=== PATIENT | female | born 1995 | race Caucasian/White ===

== ENCOUNTER 2016-09-30 11:18 | Inpatient (IN) | payer MEDICAID ==
[~2016-09-30] VITALS: Ht 149.9 cm; Wt 67.1 kg
[2016-09-30] MEDS ORDERED: CARBOPROST TROMETHAMINE 250 MCG/ML AMPUL IM PRN (12:15)
[2016-09-30] MEDS ORDERED: LIDOCAINE HCL 1% 20ML VIAL (Pyxis) INJ INFIL SCH (12:15)
[2016-09-30] MEDS ORDERED: NALOXONE HCL 0.4 MG/ML 1ML VIAL IM PRN (12:15)
[2016-09-30] MEDS ORDERED: BUTORPHANOL TARTRATE 2 MG/ML VIAL IV PRN (12:15)
[2016-09-30] MEDS ORDERED: METHYLERGONOVINE MALEATE 0.2 MG/ML IM PRN (12:15)
[2016-09-30] MEDS ORDERED: MISOPROSTOL 100MCG TABLET VG SCH (12:15)
[2016-09-30] MEDS ORDERED: DEXT 5%/LR + PITOCIN 20UNITS/L 1,000 ML IV SCH ×2 (12:20→20:30)
[2016-09-30] MEDS ORDERED: AMPICILLIN 2,000 MG in SODIUM CHLORIDE 0.9% 100 ML IV SCH (12:30)
[2016-09-30] MEDS: LACTATED RINGERS 1,000 ML IV SCH ×2 (12:53→14:25)
[2016-09-30 13:02] LABS: BASOPHILS % 0.5 % (0.0-2.0); EOSINOPHILS % 0.1 % (0.0-5.0); HEMATOCRIT. 31.5 % (36.0-48.0); HEMOGLOBIN. 10.2 g/dL (12.0-16.0); LYMPHOCYTES % 22.1 % (20.0-50.0); MEAN CORPUSCULAR HEMOGLOBIN 24.6 pg (28.0-32.0); MEAN CORPUSCULAR VOLUME 75.5 fL (81.0-99.0); MEAN PLATELET VOLUME 8.5 fl (7.4-10.4); MONOCYTES % 10.1 % (2.0-8.0); NEUTROPHILS % 67.2 % (40.0-76.0); PLATELET 198 x1000/uL (130-400); RED BLOOD CELL COUNT 4.16 mill/uL (4.2-5.4)
[2016-09-30 13:05] LABS: CLARITY URINE CLOUDY (CLEAR); COLOR URINE YELLOW (YELLOW); KETONES URINE NEGATIVE (NEGATIVE); LEUKOCYTE ESTERASE URINE 3+ (NEGATIVE); NITRITE URINE NEGATIVE (NEGATIVE); OCCULT BLOOD URINE TRACE (NEGATIVE); PROTEIN URINE NEGATIVE (NEGATIVE); SPECIFIC GRAVITY URINE 1.012 (1.005-1.030); UROBILINOGEN URINE 0.2 E.U./dL (0.2-1.0)
[2016-09-30 13:13] LABS: INR 0.9; PARTIAL THROMBOPLASTIN TIME 26.5 sec (24.0-34.0); PROTHROMBIN TIME 9.7 sec
[2016-09-30 13:52] LABS: *AMPHETAMINES SCREEN URINE NEGATIVE (NEGATIVE); *BARBITURATES SCREEN URINE NEGATIVE (NEGATIVE); *BENZODIAZEPINES SCREEN URINE NEGATIVE (NEGATIVE); CANNABINOID URINE SCREEN NEGATIVE (NEGATIVE); METHADONE URINE SCREEN NEGATIVE (NEGATIVE); OPIATES URINE SCREEN NEGATIVE (NEGATIVE); PHENCYCLIDINE URINE SCREEN NEGATIVE (NEGATIVE)
[2016-09-30 13:55] LABS: *COCAINE SCREEN URINE NEGATIVE (NEGATIVE)
[2016-09-30 14:12] LABS: HEPATITIS B SURFACE ANTIGEN NEGATIVE
[2016-09-30] MEDS ORDERED: RHO(D) IMMUNE GLOBULIN 300 MCG/SYR IM PRN (20:15)
[2016-09-30] MEDS ORDERED: ACETAMINOPHEN WITH CODEINE 300/30MG TABLET PO PRN (20:15)
[2016-09-30] MEDS ORDERED: IBUPROFEN 400MG TABLET PO PRN (20:15)
[2016-09-30] MEDS: IBUPROFEN 800MG TABLET PO PRN (21:17)
[2016-10-01] MEDS ORDERED: AMPICILLIN 1,000 MG in SODIUM CHLORIDE 0.9% 50 ML IV SCH (00:30)
[2016-10-01 05:32] LABS: BASOPHILS % 0.5 % (0.0-2.0); EOSINOPHILS % 0.2 % (0.0-5.0); HEMATOCRIT. 30.6 % (36.0-48.0); HEMOGLOBIN. 9.9 g/dL (12.0-16.0); LYMPHOCYTES % 20.8 % (20.0-50.0); MEAN CORPUSCULAR HEMOGLOBIN 24.5 pg (28.0-32.0); MEAN PLATELET VOLUME 8.4 fl (7.4-10.4); MONOCYTES % 12.1 % (2.0-8.0); NEUTROPHILS % 66.4 % (40.0-76.0); PLATELET 178 x1000/uL (130-400); RED BLOOD CELL COUNT 4.03 mill/uL (4.2-5.4); RED CELL DISTRIBUTION WIDTH 16.1 % (11.6-14.6)
[2016-10-01] MEDS: IBUPROFEN 800MG TABLET PO PRN (12:46)
[2016-10-02 08:07] VITALS: BP 90/64
== END 2016-10-02 14:00 | disposition home or self-care (01) | DRG 560 ==
LOC: OBSVTOIN 11:18 → L&D 11:18 → 7EST PP/OB 22:50
PROVIDERS: ADMIT Obstetrics & Gynecology; ATTEND Obstetrics & Gynecology
PROC: 0KQM0ZZ Repair Perineum Muscle, Open Approach (ICD-10-PCS; 2016-09-30)
PROC: 10E0XZZ Delivery of Products of Conception, External Approach (ICD-10-PCS; principal; 2016-09-30 19:50)
DX: O69.81X0 Labor and delivery complicated by cord around neck, without compression, not applicable or unspecified (principal); O99.03 Anemia complicating the puerperium; O70.1 Second degree perineal laceration during delivery; Z37.0 Single live birth; Z3A.38 38 weeks gestation of pregnancy
CPT/HCPCS: 36415; 80305; 81001; 85025; 85610; 85730; 86592; 86703; 86762; 86850; 86900; 87340; J0290; J2210; J2590; J3490; J7050; J7120

== ENCOUNTER 2018-08-29 12:06 | Inpatient (IN) | payer MEDICAID ==
[~2018-08-29] VITALS: Ht 134.6 cm; Wt 71.7 kg
[2018-08-29] MEDS ORDERED: LACTATED RINGERS 1,000 ML IV SCH (13:00)
[2018-08-29] MEDS ORDERED: METHYLERGONOVINE MALEATE 0.2 MG/ML IM PRN (13:15)
[2018-08-29] MEDS ORDERED: LIDOCAINE HCL 1% 20ML VIAL (Pyxis) INJ INFIL SCH (13:15)
[2018-08-29] MEDS ORDERED: CARBOPROST TROMETHAMINE 250 MCG/ML AMPUL IM PRN (13:15)
[2018-08-29] MEDS ORDERED: PENICILLIN G POTASSIUM 5 MMU in DEXT 5% WATER 100 ML IV ONE (13:30)
[2018-08-29 14:30] LABS: CHLORIDE 110 mEq/L (98-107)
[2018-08-29 14:34] LABS: BASOPHILS % 0.5 % (0.0-2.0); EOSINOPHILS % 0.1 % (0.0-5.0); HEMATOCRIT. 34.1 % (36.0-48.0); HEMOGLOBIN. 10.9 g/dL (12.0-16.0); LYMPHOCYTES % 30.6 % (20.0-50.0); MEAN CORPUSCULAR HEMOGLOBIN 24.6 pg (28.0-32.0); MEAN CORPUSCULAR VOLUME 77.2 fL (81.0-99.0); MEAN PLATELET VOLUME 8.8 fl (7.4-10.4); MONOCYTES % 9.4 % (2.0-8.0); NEUTROPHILS % 59.4 % (40.0-76.0); PLATELET 226 x1000/uL (130-400); RED BLOOD CELL COUNT 4.41 mill/uL (4.2-5.4); RED CELL DISTRIBUTION WIDTH 17.1 % (11.6-14.6)
[2018-08-29 15:16] LABS: HEPATITIS B SURFACE ANTIGEN NEGATIVE
[2018-08-29 15:43] LABS: INR 0.9; PROTHROMBIN TIME 9.6 sec (9.6-11.0)
[2018-08-29 16:05] LABS: CLARITY URINE CLEAR (CLEAR); COLOR URINE YELLOW (YELLOW); KETONES URINE NEGATIVE (NEGATIVE); LEUKOCYTE ESTERASE URINE NEGATIVE (NEGATIVE); NITRITE URINE NEGATIVE (NEGATIVE); OCCULT BLOOD URINE NEGATIVE (NEGATIVE); PH URINE 6.5 (4.5-8.0); PROTEIN URINE NEGATIVE (NEGATIVE); SPECIFIC GRAVITY URINE 1.006 (1.005-1.030); UROBILINOGEN URINE 0.2 E.U./dL (0.2-1.0)
[2018-08-29 16:25] LABS: *AMPHETAMINES SCREEN URINE NEGATIVE (NEGATIVE); *BARBITURATES SCREEN URINE NEGATIVE (NEGATIVE); *BENZODIAZEPINES SCREEN URINE NEGATIVE (NEGATIVE)
[2018-08-29 16:26] LABS: *COCAINE SCREEN URINE NEGATIVE (NEGATIVE); CANNABINOID URINE SCREEN NEGATIVE (NEGATIVE); METHADONE URINE SCREEN NEGATIVE (NEGATIVE); OPIATES URINE SCREEN NEGATIVE (NEGATIVE); PHENCYCLIDINE URINE SCREEN NEGATIVE (NEGATIVE)
[2018-08-29] MEDS ORDERED: PENICILLIN G POTASSIUM 2.5 MMU in DEXTROSE 5% WATER 50 ML IV SCH (18:00)
[2018-08-29] MEDS: DEXT 5%/LR + PITOCIN 20UNITS/L 1,000 ML IV SCH ×2 (19:26→20:16)
[2018-08-29] MEDS ORDERED: DEXT 5%/LR + PITOCIN 20UNITS/L 1,000 ML IV SCH (20:17)
[2018-08-29] MEDS ORDERED: GLYCERIN/WITCH HAZEL LEAF MEDICATED PAD TOP PRN (20:30)
[2018-08-29] MEDS ORDERED: IBUPROFEN 400MG TABLET PO PRN (20:30)
[2018-08-29] MEDS ORDERED: DIPHENHYDRAMINE 25MG CAPSULE PO PRN (20:30)
[2018-08-29] MEDS ORDERED: TETANUS, DIPHTHERIA, PERTUSSIS VAC/PF 0.5ML (>7YR OLD) IM ONE (20:30)
[2018-08-29] MEDS ORDERED: BENZOCAINE/LANOLIN/ALOE VERA SPRAY TOP PRN (20:30)
[2018-08-29] MEDS ORDERED: LANOLIN OINT 7GM TUBE TOP PRN (20:30)
[2018-08-29] MEDS ORDERED: ACETAMINOPHEN WITH CODEINE 300/30MG TABLET PO PRN (20:30)
[2018-08-29] MEDS ORDERED: DOCUSATE SODIUM 100MG CAPSULE PO SCH (21:00)
[2018-08-29] MEDS: IBUPROFEN 800MG TABLET PO PRN (21:56)
[2018-08-29 22:20] VITALS: BP 101/52
[2018-08-30 00:15] VITALS: BP 103/60
[2018-08-30 04:30] VITALS: BP 98/66
[2018-08-30 06:38] LABS: BASOPHILS % 0.4 % (0.0-2.0); EOSINOPHILS % 0.2 % (0.0-5.0); HEMATOCRIT. 29.7 % (36.0-48.0); HEMOGLOBIN. 9.7 g/dL (12.0-16.0); LYMPHOCYTES % 22.2 % (20.0-50.0); MEAN CORPUSCULAR HEMOGLOBIN 25.3 pg (28.0-32.0); MEAN CORPUSCULAR VOLUME 77.1 fL (81.0-99.0); MEAN PLATELET VOLUME 8.6 fl (7.4-10.4); MONOCYTES % 12.2 % (2.0-8.0); PLATELET 193 x1000/uL (130-400); RED BLOOD CELL COUNT 3.85 mill/uL (4.2-5.4); RED CELL DISTRIBUTION WIDTH 17.1 % (11.6-14.6)
[2018-08-30] MEDS: PRENATAL VIT/FE FUMARATE/FA TABLET PO SCH (08:33)
[2018-08-30] MEDS: FERROUS SULFATE 325MG TABLET PO SCH ×2 (08:33→16:37)
[2018-08-30] MEDS: IBUPROFEN 800MG TABLET PO PRN ×2 (08:34→20:57)
[2018-08-30] MEDS: SIMETHICONE 80MG TABLET CHEW PO SCH ×3 (08:34→20:57)
[2018-08-30 16:00] VITALS: BP 94/58
[2018-08-30] MEDS ORDERED: TETANUS, DIPHTHERIA, PERTUSSIS VAC/PF 0.5ML (>7YR OLD) IM ONE (19:15)
[2018-08-30 19:30] VITALS: BP 98/62
[2018-08-31 05:50] VITALS: BP 96/60
[2018-08-31 07:36] VITALS: BP 94/57
[2018-08-31] MEDS: IBUPROFEN 800MG TABLET PO PRN (08:55)
[2018-08-31] MEDS: SIMETHICONE 80MG TABLET CHEW PO SCH (08:55)
[2018-08-31] MEDS: PRENATAL VIT/FE FUMARATE/FA TABLET PO SCH (08:56)
[2018-08-31] MEDS: FERROUS SULFATE 325MG TABLET PO SCH (08:56)
== END 2018-08-31 11:55 | disposition home or self-care (01) | DRG 560 ==
LOC: OBSVTOIN 12:06 → 8 EST LDRP 12:06 → 8EST 21:29
PROVIDERS: ADMIT Specialist; ATTEND Specialist
PROC: 0HQ9XZZ Repair Perineum Skin, External Approach (ICD-10-PCS; principal; 2018-08-29)
PROC: 10E0XZZ Delivery of Products of Conception, External Approach (ICD-10-PCS; 2018-08-29)
DX: O99.02 Anemia complicating childbirth (principal); D64.9 Anemia, unspecified; O70.0 First degree perineal laceration during delivery; Z37.0 Single live birth; Z3A.40 40 weeks gestation of pregnancy
CPT/HCPCS: 36415; 80305; 86592; 86703; 86762; 86850; 86900; 87340; 90715; 99281; J2540; J2590; J3490; J7060

== ENCOUNTER 2021-03-08 14:20 | Inpatient (IN) | payer MEDICAID ==
[~2021-03-08] VITALS: Ht 152.4 cm; Wt 70.8 kg
[2021-03-08] MEDS ORDERED: CARBOPROST TROMETHAMINE 250 MCG/ML AMPUL IM PRN (16:45)
[2021-03-08] MEDS ORDERED: NALOXONE HCL 0.4 MG/ML 1ML VIAL IM PRN (16:45)
[2021-03-08] MEDS ORDERED: METHYLERGONOVINE MALEATE 0.2 MG/ML IM PRN (16:45)
[2021-03-08] MEDS ORDERED: LIDOCAINE HCL 1% 20ML VIAL (Pyxis) INJ INFIL SCH (16:45)
[2021-03-08] MEDS ORDERED: LACTATED RINGERS 1,000 ML IV SCH (16:45)
[2021-03-08] MEDS ORDERED: BUTORPHANOL TARTRATE 2 MG/ML VIAL IV PRN (16:45)
[2021-03-08] MEDS ORDERED: DEXT 5%/LR + PITOCIN 20UNITS/L 1,000 ML IV SCH (16:45)
[2021-03-08 18:03] LABS: CLARITY URINE CLEAR (CLEAR); COLOR URINE YELLOW (YELLOW); KETONES URINE NEGATIVE (NEGATIVE); LEUKOCYTE ESTERASE URINE 3+ (NEGATIVE); NITRITE URINE NEGATIVE (NEGATIVE); OCCULT BLOOD URINE 3+ (NEGATIVE); PROTEIN URINE NEGATIVE (NEGATIVE); SPECIFIC GRAVITY URINE 1.007 (1.005-1.030); UROBILINOGEN URINE 0.2 E.U./dL (0.2-1.0)
[2021-03-08 18:11] LABS: BASOPHILS % 0.3 % (0.0-2.0); EOSINOPHILS % 0.2 % (0.0-5.0); HEMATOCRIT. 37.4 % (36.0-48.0); LYMPHOCYTES % 31.3 % (20.0-50.0); MEAN CORPUSCULAR HEMOGLOBIN 26.1 pg (28.0-32.0); MEAN CORPUSCULAR VOLUME 81.5 fL (81.0-99.0); MEAN PLATELET VOLUME 8.9 fl (7.4-10.4); MONOCYTES % 8.4 % (2.0-8.0); NEUTROPHILS % 59.8 % (40.0-76.0); PLATELET 235 x1000/uL (130-400); RED BLOOD CELL COUNT 4.59 mill/uL (4.2-5.4); RED CELL DISTRIBUTION WIDTH 16.3 % (11.6-14.6)
[2021-03-08] MEDS ORDERED: ROPIVACAINE HCL/PF EPIDURAL 200 ML EPI SCH (18:15)
[2021-03-08 18:16] LABS: *AMPHETAMINES SCREEN URINE NEGATIVE (NEGATIVE); *BARBITURATES SCREEN URINE NEGATIVE (NEGATIVE); *BENZODIAZEPINES SCREEN URINE NEGATIVE (NEGATIVE); *COCAINE SCREEN URINE NEGATIVE (NEGATIVE)
[2021-03-08 18:17] LABS: CANNABINOID URINE SCREEN NEGATIVE (NEGATIVE); METHADONE URINE SCREEN NEGATIVE (NEGATIVE); OPIATES URINE SCREEN NEGATIVE (NEGATIVE); PHENCYCLIDINE URINE SCREEN NEGATIVE (NEGATIVE)
[2021-03-08 18:53] LABS: HEPATITIS B SURFACE ANTIGEN NEGATIVE
[2021-03-08 19:09] LABS: INR 0.9; PARTIAL THROMBOPLASTIN TIME 27.7 sec (23.4-31.0); PROTHROMBIN TIME 10.1 sec (9.6-11.0)
[2021-03-08] MEDS ORDERED: PNV (21:02)
[2021-03-08] MEDS ORDERED: IRON (21:06)
[2021-03-08] MEDS ORDERED: CALCIUM (21:06)
[2021-03-08] MEDS ORDERED: ROPIVACAINE HCL/PF EPIDURAL 200 ML EPI ONE (22:12)
[2021-03-08] MEDS ORDERED: FENTANYL CITRATE/PF 50MCG/ML 2ML VIAL ONE (22:12)
[2021-03-09 01:30] VITALS: BP 114/72
[2021-03-09 02:00] VITALS: BP 96/51
[2021-03-09] MEDS ORDERED: RHO(D) IMMUNE GLOBULIN 300 MCG/SYR IM PRN (02:45)
[2021-03-09] MEDS ORDERED: LANOLIN OINT 7GM TUBE TOP PRN (02:45)
[2021-03-09] MEDS ORDERED: BENZOCAINE/LANOLIN/ALOE VERA SPRAY TOP PRN (02:45)
[2021-03-09] MEDS ORDERED: ACETAMINOPHEN WITH CODEINE 300/30MG TABLET PO PRN (02:45)
[2021-03-09] MEDS ORDERED: BISACODYL 10MG SUPP PR PRN (02:45)
[2021-03-09] MEDS ORDERED: HEMORRHOIDAL SUPP PR PRN (02:45)
[2021-03-09] MEDS ORDERED: IBUPROFEN 800MG TABLET PO PRN (02:45)
[2021-03-09] MEDS ORDERED: DIPHENHYDRAMINE 25MG CAPSULE PO PRN (02:45)
[2021-03-09] MEDS ORDERED: IBUPROFEN 400MG TABLET PO PRN (02:45)
[2021-03-09] MEDS ORDERED: DEXT 5%/LR + PITOCIN 20UNITS/L 1,000 ML IV SCH (03:30)
[2021-03-09 07:02] VITALS: BP 98/62
[2021-03-09 08:45] VITALS: BP 96/56
[2021-03-09] MEDS ORDERED: PRENATAL VIT/FE FUMARATE/FA TABLET PO SCH (09:00)
[2021-03-09] MEDS: MAGNESIUM/ALUMINUM HYDROXIDE/SIMETHICONE 30ML UDC PO SCH ×3 (10:56→21:25)
[2021-03-09] MEDS: SIMETHICONE 80MG TABLET CHEW PO SCH ×3 (10:57→21:25)
[2021-03-09 20:00] VITALS: BP 98/61
[2021-03-09] MEDS ORDERED: DOCUSATE SODIUM 100MG CAPSULE PO SCH (21:00)
[2021-03-10 05:00] VITALS: BP 90/55
[2021-03-10 06:33] LABS: BASOPHILS % 0.4 % (0.0-2.0); EOSINOPHILS % 0.9 % (0.0-5.0); HEMATOCRIT. 29.5 % (36.0-48.0); HEMOGLOBIN. 9.7 g/dL (12.0-16.0); LYMPHOCYTES % 36.5 % (20.0-50.0); MEAN CORPUSCULAR VOLUME 82.5 fL (81.0-99.0); MEAN PLATELET VOLUME 9.1 fl (7.4-10.4); MONOCYTES % 10.4 % (2.0-8.0); NEUTROPHILS % 51.8 % (40.0-76.0); PLATELET 183 x1000/uL (130-400); RED BLOOD CELL COUNT 3.57 mill/uL (4.2-5.4); RED CELL DISTRIBUTION WIDTH 16.4 % (11.6-14.6)
[2021-03-10] MEDS ORDERED: FERROUS SULFATE 325MG TABLET PO SCH (07:30)
[2021-03-10 08:00] VITALS: BP 110/76
[2021-03-10] MEDS ORDERED: FERR-63 PO (08:22)
[2021-03-10] MEDS ORDERED: IBUP-2030 PO (08:22)
== END 2021-03-10 15:00 | disposition home or self-care (01) | DRG 560 ==
LOC: 8 EST LDRP 14:20 → OBSVTOIN 14:20 → 8EST 03-09 01:20
PROVIDERS: ADMIT Obstetrics & Gynecology; ATTEND Obstetrics & Gynecology
PROC: 10E0XZZ Delivery of Products of Conception, External Approach (ICD-10-PCS; principal; 2021-03-09)
DX: O90.81 Anemia of the puerperium (principal); Z37.0 Single live birth; D64.9 Anemia, unspecified; Z20.822 Contact with and (suspected) exposure to COVID-19; Z3A.39 39 weeks gestation of pregnancy
CPT/HCPCS: 36415; 76805; 76818; 80305; 81003; 85025; 86592; 86703; 86762; 86850; 86900; 87340; 87426; 99281; G0378; J2590; J2795; J3010; J7120; A4315

== ENCOUNTER 2022-06-27 09:10 | Inpatient (IN) | payer MEDICAID ==
[~2022-06-27] VITALS: Ht 144.8 cm; Wt 75.7 kg
[~2022-06-27 09:10] MED LIST: CALCIUM; FERR-63 PO; IBUP-2030 PO; IRON; PNV
[2022-06-27] MEDS ORDERED: NALOXONE HCL 0.4 MG/ML 1ML VIAL IM PRN (10:45)
[2022-06-27] MEDS ORDERED: BUTORPHANOL TARTRATE 2 MG/ML VIAL IV PRN (10:45)
[2022-06-27] MEDS ORDERED: METHYLERGONOVINE MALEATE 0.2 MG/ML IM PRN (10:45)
[2022-06-27] MEDS ORDERED: CARBOPROST TROMETHAMINE 250 MCG/ML AMPUL IM PRN (10:45)
[2022-06-27] MEDS ORDERED: MISOPROSTOL 100MCG TABLET VG SCH (11:00)
[2022-06-27 11:13] LABS: BASOPHILS % 0.3 % (0.0-2.0); EOSINOPHILS % 0.2 % (0.0-5.0); HEMATOCRIT. 33.3 % (36.0-48.0); LYMPHOCYTES % 18.2 % (20.0-50.0); MEAN CORPUSCULAR HEMOGLOBIN 26.1 pg (28.0-32.0); MEAN CORPUSCULAR VOLUME 78.7 fL (81.0-99.0); MEAN PLATELET VOLUME 8.7 fl (7.4-10.4); MONOCYTES % 9.6 % (2.0-8.0); NEUTROPHILS % 71.7 % (40.0-76.0); PLATELET 274 x1000/uL (130-400); RED BLOOD CELL COUNT 4.23 mill/uL (4.2-5.4)
[2022-06-27] MEDS: LACTATED RINGERS 1,000 ML IV SCH ×3 (11:13→21:24)
[2022-06-27 11:14] LABS: CLARITY URINE CLEAR (CLEAR); COLOR URINE YELLOW (YELLOW); KETONES URINE NEGATIVE (NEGATIVE); LEUKOCYTE ESTERASE URINE 2+ (NEGATIVE); NITRITE URINE NEGATIVE (NEGATIVE); OCCULT BLOOD URINE NEGATIVE (NEGATIVE); PROTEIN URINE NEGATIVE (NEGATIVE); SPECIFIC GRAVITY URINE 1.021 (1.005-1.030)
[2022-06-27 11:24] LABS: INR 0.9; PARTIAL THROMBOPLASTIN TIME 28.4 sec (23.4-31.0); PROTHROMBIN TIME 10.1 sec (9.6-11.0)
[2022-06-27] MEDS ORDERED: PENICILLIN G POTASSIUM 5 MMU in DEXT 5% WATER 100 ML IV SCH (11:30)
[2022-06-27 12:57] LABS: HEPATITIS B SURFACE ANTIGEN NEGATIVE
[2022-06-27 13:05] LABS: *AMPHETAMINES SCREEN URINE NEGATIVE (NEGATIVE); *BARBITURATES SCREEN URINE NEGATIVE (NEGATIVE); *BENZODIAZEPINES SCREEN URINE NEGATIVE (NEGATIVE); *COCAINE SCREEN URINE NEGATIVE (NEGATIVE); CANNABINOID URINE SCREEN NEGATIVE (NEGATIVE); METHADONE URINE SCREEN NEGATIVE (NEGATIVE); OPIATES URINE SCREEN NEGATIVE (NEGATIVE); PHENCYCLIDINE URINE SCREEN NEGATIVE (NEGATIVE)
[2022-06-27] MEDS ORDERED: PENICILLIN G POTASSIUM 2.5 MMU in DEXTROSE 5% WATER 50 ML IV SCH (16:00)
[2022-06-27] MEDS: OXYTOCIN 30 UNITS/500ML NS PMX 500 ML IV SCH (18:33)
[2022-06-27] MEDS ORDERED: ROPIVACAINE HCL/PF EPIDURAL 200 ML EPI ONE (21:14)
[2022-06-27] MEDS ORDERED: ROPIVACAINE HCL/PF EPIDURAL 200 ML EPI SCH (21:15)
[2022-06-28] MEDS ORDERED: IBUPROFEN 400MG TABLET PO PRN (01:45)
[2022-06-28] MEDS ORDERED: OXYTOCIN 30 UNITS/500ML NS PMX 500 ML IV SCH (01:45)
[2022-06-28] MEDS ORDERED: IBUPROFEN 800MG TABLET PO PRN (01:45)
[2022-06-28] MEDS ORDERED: HEMORRHOIDAL SUPP PR PRN (01:45)
[2022-06-28] MEDS ORDERED: OXYCODONE HCL/ACETAMINOPHEN 5/325MG TABLET PO PRN (01:45)
[2022-06-28] MEDS ORDERED: GLYCERIN/WITCH HAZEL LEAF MEDICATED PAD TOP PRN (01:45)
[2022-06-28] MEDS ORDERED: DIPHENHYDRAMINE 25MG CAPSULE PO PRN (01:45)
[2022-06-28] MEDS ORDERED: LANOLIN OINT 7GM TUBE TOP PRN (01:45)
[2022-06-28] MEDS ORDERED: BENZOCAINE/LANOLIN/ALOE VERA SPRAY TOP PRN (01:45)
[2022-06-28] MEDS ORDERED: METHYLERGONOVINE MALEATE 0.2 MG/ML IM PRN (01:45)
[2022-06-28] MEDS ORDERED: BISACODYL 10MG SUPP PR PRN (01:45)
[2022-06-28] MEDS ORDERED: RHO(D) IMMUNE GLOBULIN 300 MCG/SYR IM PRN (01:45)
[2022-06-28] MEDS: OXYTOCIN 30 UNITS/500ML NS PMX 500 ML IV SCH (02:21)
[2022-06-28 04:00] VITALS: BP 106/65
[2022-06-28 04:20] VITALS: BP 102/60
[2022-06-28 07:30] VITALS: BP 98/59
[2022-06-28] MEDS: MAGNESIUM/ALUMINUM HYDROXIDE/SIMETHICONE 30ML UDC PO SCH ×4 (07:30→20:46)
[2022-06-28] MEDS: SIMETHICONE 80MG TABLET CHEW PO SCH ×4 (08:00→20:46)
[2022-06-28] MEDS: PRENATAL VIT/FE FUMARATE/FA TABLET PO SCH (08:24)
[2022-06-28 15:30] VITALS: BP 96/64
[2022-06-28 20:00] VITALS: BP 100/62
[2022-06-28] MEDS ORDERED: DOCUSATE SODIUM 100MG CAPSULE PO SCH (21:00)
[2022-06-29 04:00] VITALS: BP 103/64
[2022-06-29 07:06] LABS: BASOPHILS % 0.5 % (0.0-2.0); EOSINOPHILS % 1.3 % (0.0-5.0); HEMATOCRIT. 30.5 % (36.0-48.0); HEMOGLOBIN. 10.2 g/dL (12.0-16.0); LYMPHOCYTES % 31.8 % (20.0-50.0); MEAN CORPUSCULAR HEMOGLOBIN 26.6 pg (28.0-32.0); MEAN CORPUSCULAR VOLUME 79.6 fL (81.0-99.0); MEAN PLATELET VOLUME 8.6 fl (7.4-10.4); MONOCYTES % 10.5 % (2.0-8.0); NEUTROPHILS % 55.9 % (40.0-76.0); PLATELET 275 x1000/uL (130-400); RED BLOOD CELL COUNT 3.83 mill/uL (4.2-5.4); RED CELL DISTRIBUTION WIDTH 14.8 % (11.6-14.6)
[2022-06-29] MEDS: MAGNESIUM/ALUMINUM HYDROXIDE/SIMETHICONE 30ML UDC PO SCH ×2 (07:30→12:30)
[2022-06-29 07:52] VITALS: BP 99/64
[2022-06-29] MEDS: SIMETHICONE 80MG TABLET CHEW PO SCH ×2 (08:00→13:00)
[2022-06-29] MEDS: PRENATAL VIT/FE FUMARATE/FA TABLET PO SCH (08:07)
[2022-06-29] MEDS: FERROUS SULFATE 325MG TABLET PO SCH ×2 (08:07→12:30)
== END 2022-06-29 13:30 | disposition home or self-care (01) | DRG 560 ==
LOC: 8 EST LDRP 09:10 → OBSVTOIN 09:10 → 8EST 06-28 03:23
PROVIDERS: ADMIT Obstetrics & Gynecology; ATTEND Obstetrics & Gynecology
PROC: 10E0XZZ Delivery of Products of Conception, External Approach (ICD-10-PCS; principal; 2022-06-28)
DX: O48.0 Post-term pregnancy (principal); Z37.0 Single live birth; Z20.822 Contact with and (suspected) exposure to COVID-19; Z3A.40 40 weeks gestation of pregnancy
CPT/HCPCS: 36415; 76805; 76818; 80305; 81003; 85025; 86592; 86703; 86762; 86850; 86900; 87340; 87426; 99281; J2540; J2795; J7060; J7120; A4315; J2590